=== PATIENT | female | born 1930 | race Caucasian/White ===

== ENCOUNTER → 2016-07-26 | Day surgery (SDC) | payer MEDICARE, OTHER ==
[~2016-07-26] MED LIST: Brimonidine 0.2% Ophth Soln 5 ML Bottle EYEBOTH SCH; Phenylephrine 2.5% Ophth Soln 2 ML Bot EYEBOTH SCH
[2016-07-26 12:53] VITALS: BP 145/67
== END ==
LOC: JD.SDS 11:36
PROVIDERS: ATTEND Ophthalmology
DX: H26.493 Other secondary cataract, bilateral (principal); H16.103 Unspecified superficial keratitis, bilateral; H16.223 Keratoconjunctivitis sicca, not specified as Sjogren's, bilateral; H40.003 Preglaucoma, unspecified, bilateral; E11.9 Type 2 diabetes mellitus without complications; E78.00 Pure hypercholesterolemia, unspecified; I10 Essential (primary) hypertension; Z90.49 Acquired absence of other specified parts of digestive tract; Z98.890 Other specified postprocedural states; Z90.710 Acquired absence of both cervix and uterus; Z98.41 Cataract extraction status, right eye; Z98.42 Cataract extraction status, left eye; Z96.1 Presence of intraocular lens; Z82.49 Family history of ischemic heart disease and other diseases of the circulatory system; Z83.518 Family history of other specified eye disorder; Z79.82 Long term (current) use of aspirin; Z79.899 Other long term (current) drug therapy; Z91.040 Latex allergy status; Z88.1 Allergy status to other antibiotic agents; Z88.8 Allergy status to other drugs, medicaments and biological substances
CPT/HCPCS: 66821; A9270

== ENCOUNTER 2016-08-06 14:20 | Emergency (ER) | payer MEDICARE, OTHER ==
[2016-08-06] MEDS ORDERED: Labetalol 100 MG/20 ML MDV IVPUSH ONE (15:19)
--- NOTE | 2016-08-06 15:21 | EDM.PDOC ---
ED HPI GENERAL MEDICAL PROBLEM - General Chief Complaint: Cardiovascular Problem Stated Complaint: ADELINA BLOOD PRESSURE Time Seen by Provider: 08/06/16 15:01 Source of Information: Reports: Patient History Limitations: Reports: No Limitations - History of Present Illness INITIAL COMMENTS - FREE TEXT/NARRATIVE: 86-year-old female presents for evaluation and treatment of hypertension and a headache. Patient reports that she took her blood pressure today and was found to have 186/105. She states that she was told by her doctor that she could take an extra lisinopril if her blood pressure is high. She took a 20 mg of lisinopril at 6 AM this morning, 9 AM this morning again at 1300 this afternoon. Reports her blood pressure remained high. Patient is denying any chest pain, shortness of breath, nausea, vomiting, vision changes or unintentional weight gain. She reports some swelling in her lower legs. She states she developes swelling when she indulges on sweets and She did indulg on sweets yesterday. Patient also reports a headache in the posterior aspect of her head. She does not frequently have headaches. Has not taken anything for the headache thus far. Posterior Headache Pain Score (Numeric/FACES): 8 - Related Data Allergies Allergy/AdvReac Type Severity Reaction Status Date / Time ciprofloxacin Allergy Rash Verified 05/15/15 17:33 clindamycin Allergy Rash Verified 05/15/15 17:33 Latex, Natural Rubber Allergy Rash Verified 05/15/15 17:33 nitrofurantoin Allergy Rash Verified 05/15/15 17:33 Sulfa (Sulfonamide Allergy Rash Verified 05/15/15 17:33 Antibiotics) Home Meds: Home Meds Aspirin [Mague Chewable Aspirin] 81 mg PO DAILY 08/21/13 [History] Cholecalciferol (Vitamin D3) [Vitamin D3] 1,000 units PO DAILY 08/21/13 [History ] Levothyroxine Sodium [Synthroid] 100 mcg PO DAILY 08/21/13 [History] Simvastatin [Zocor] 10 mg PO BEDTIME 08/21/13 [History] Ubidecarenone [Coq-10] 100 mg PO DAILY 08/21/13 [History] Antiox#10/Om3/DHA/EPA/Lut/Zeax [I-Caps with Lutein-[place] 3 SFG] 1 mg PO DAILY [History] Lisinopril 20 mg PO BID 04/13/14 [History] Hydrochlorothiazide 25 mg PO DAILY 03/09/15 [History] Metoprolol Tartrate 100 mg PO BID #60 tablet 05/04/15 [Rx] LORazepam [Ativan] 0.5 mg PO BEDTIME PRN #15 tablet 05/15/15 [Rx] cloNIDine [Catapres] 0.1 mg PO DAILY 05/15/15 [History] Metoprolol Tartrate 200 mg PO BID #90 tablet 08/07/16 [Rx] Past Medical History HEENT History: Reports: Cataract, Glaucoma, Impaired Vision Other HEENT History: wears eyeglasses Cardiovascular History: Reports: High Cholesterol, Hypertension 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: Reports: Renal Calculus 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 Oncologic (Cancer) History: Reports: Other (See Below) Other Oncologic History: unknown/ cant remember - Past Surgical History HEENT Surgical History: Reports: Cataract Surgery GI Surgical History: Reports: Appendectomy Neurological Surgical History: Reports: Discectomy Musculoskeletal Surgical History: Reports: Shoulder Surgery Social & Family History - Tobacco Use Smoking Status *Q: Former Smoker Years of Tobacco use: 25 Used Tobacco, but Quit: Yes Month Tobacco Last Used: 28 yrs Second Hand Smoke Exposure: No - Caffeine Use Caffeine Use: Reports: Coffee - Alcohol Use Days Per Week of Alcohol Use: 0 - Recreational Drug Use Recreational Drug Use: No - Living Situation & Occupation Living situation: Reports: Alone, Occupation: Retired ED ROS GENERAL - Review of Systems Review Of Systems: See Below Constitutional: Denies: Fever, Weight Gain HEENT: Denies: Vision Change Respiratory: Denies: Shortness of Breath Cardiovascular: Reports: Blood Pressure Problem, Edema. Denies: Chest Pain GI/Abdominal: Denies: Nausea, Vomiting Neurological: Reports: Headache. Denies: Dizziness ED EXAM, GENERAL - Physical Exam Exam: See Below Exam Limited By: No Limitations General Appearance: Alert, WD/WN, No Apparent Distress Eye Exam: Bilateral Eye: PERRL Ears: Normal External Exam Nose: Normal Inspection Throat/Mouth: Normal Inspection, Normal Voice, No Airway Compromise Head: Atraumatic, Normocephalic Neck: Normal Inspection, Full Range of Motion Respiratory/Chest: No Respiratory Distress, Lungs Clear, Normal Breath Sounds Cardiovascular: Normal Peripheral Pulses, Regular Rate, Rhythm, No Murmur Peripheral Pulses: 2+: Radial (L), Radial (R), Posterior Tibial (L), Posterior Tibial (R), Dorsalis Pedis (L), Dorsalis Pedis (R) Extremities: Normal Inspection, Other (2+ nonpitting edema) Neurological: Alert, Oriented, Normal Cognition, Normal Gait Psychiatric: Normal Affect, Normal Mood Skin Exam: Warm, Dry, Normal Color EKG INTERPRETATION EKG Date: 08/06/16 Time: 15:35 Rhythm: NSR Rate (beats/min): 86 [place]: normal P-wave: present QRS: normal ST-T: normal QT: normal Comparison: no change EKG Interpretation Comments: NSR at 86 bpm. Q waves in V1 and V2 -old anteroseptal UT. Reviewed by myself and Dr. Land. Course - Vital Signs Last Recorded V/S: Last Vital Signs Temp 36.6 C 08/06/16 14:52 Pulse 97 08/06/16 19:09 Resp 18 08/06/16 19:09 BP 153/73 H 08/06/16 19:09 Pulse Ox 96 08/06/16 19:09 - Orders/Labs/Meds Labs: Laboratory Tests 08/06/16 08/06/16 08/06/16 Range/Units 15:29 15:29 15:29 WBC 7.08 (3.98-10.04) K/mm3 RBC 4.30 (3.98-5.22) M/mm3 Hgb 13.7 (11.2-15.7) gm/L Hct 41.3 (34.1-44.9) % MCV 96.0 H (79.4-94.8) fl MCH 31.9 (25.6-32.2) pg MCHC 33.2 (32.2-35.5) g/dl RDW Std Deviation 46.9 H (36.4-46.3) fL Plt Count 185 (182-369) K/mm3 MPV 8.7 L (9.4-12.3) fl Neut % (Auto) 61.2 (34.0-71.1) % Lymph % (Auto) 21.9 (19.3-51.7) % [place] % (Auto) 11.3 (4.7-12.5) % Eos % (Auto) 4.4 (0.7-5.8) Baso % (Auto) 0.6 (0.1-1.2) % Neut # (Auto) 4.34 (1.56-6.13) K/mm3 Lymph # (Auto) 1.55 (1.18-3.74) K/mm3 [place] # (Auto) 0.80 H (0.24-0.36) K/mm3 Eos # (Auto) 0.31 (0.04-0.36) K/mm3 Baso # (Auto) 0.04 (0.01-0.08) K/mm3 Sodium 138 (136-145) mEq/L Potassium 4.2 (3.5-5.1) mEq/L Chloride 100 (98-107) mEq/L Carbon Dioxide 29 (21-32) mEq/L Anion Gap 13.2 (5-15) BUN 31 H (7-18) mg/dL Creatinine 1.2 H (0.55-1.02) mg/dL Est Cr Clr Drug Dosing 24.62 mL/min Estimated GFR (MDRD) 43 (>60) mL/min BUN/Creatinine Ratio 25.8 H (14-18) Glucose 93 (83-115) mg/dL Calcium 9.1 (8.5-10.1) mg/dL Total Bilirubin 0.3 (0.2-1.0) mg/dL AST 20 (15-37) U/L ALT 25 (14-59) U/L Alkaline Phosphatase 80 (46-116) U/L B-Natriuretic Peptide 252 H (0-100) pg/mL Total Protein 7.3 (6.4-8.2) g/dl Albumin 3.8 (3.4-5.0) g/dl Globulin 3.5 gm/dL Albumin/Globulin Ratio 1.1 (1-2) Meds: Medications Discontinued Medications Generic Name Dose Route Start Last Admin Trade Name Freq PRN Reason Stop Dose Admin Furosemide 40 mg 08/06/16 17:17 08/06/16 17:41 Lasix IVPUSH 08/06/16 17:18 40 mg NOW ONE Administration Ketorolac Tromethamine 15 mg 08/06/16 17:31 08/06/16 17:47 Toradol IVPUSH 08/06/16 17:32 15 mg ONETIME ONE Administration Labetalol HCl 20 mg 08/06/16 15:19 08/06/16 16:14 Normodyne IVPUSH 08/06/16 15:20 20 mg ONETIME ONE Administration Protocol - Radiology Interpretation Free Text/Narrative:: CT of the head without contrast impression per Dr. Angel 1.. Minimal air-fluid level seen within the sphenoid sinus possibly due to retained secretions as no other abnormalities are seen within the visualized paranasal sinuses. 2. Senescent change as described which is similar to prior head CT exam. 3. No acute intracranial abnormality is identified Chest xray shows no acute intrathoracic process. The flat plat of the abdomen was ordered in error; no concerns on xray - Re-Assessments/Exams Free Text/Narrative Re-Assessment/Exam: 08/06/16 15:17 b/p at this time 173/100 08/06/16 17:30 Labs have returned. white blood cell count is 7.3, hemoglobin 13.1 and platelets are 185. Sodium is 138, potassium is 4.2 chloride is 100. Anion gap is 13.2. Creatinine is 1.2. Glucose is 93. BNP is mildly elevated at 252. Discussed the case with Dr. Land. Recommended giving 10 mg amlodipine by mouth, 40 mg IV Lasix amd 20 mg IV labetalol. I decided to start with the IV labetalol which was ordered at 1519. And now ordered IV Lasix as her blood pressure continues to stay elevated in the 170s to 180s. I decided to hold off on the pew on the amlodipine and starting by mouth amlodipine as the patient reports her blood pressure is normally in the 120s to 110s systolic. Radha checks her blood pressure daily. 08/06/16 18:47 b/p at this time is 140/94. I reviewed the EKG, CT and lab results with the patient. headache has significantly improved. After IV toradol. Will discharge home. Departure - Departure Time of Disposition: 18:49 Disposition: Home, Self-Care 01 Condition: good Clinical Impression: HTN, Essential hypertension Instructions: Hypertension Referrals: Franchesca Greer VICE PRESIDENT OF HUMAN RESOURCES [Primary Care Provider] - Forms: ED Department Discharge Additional Instructions: Continue with current plan of care. Follow-up with PCP in 2 weeks for an ER follow-up of HTN and edema. Expect to have increased urination tonight. Please return to the ER should your symptoms change or worsen.
--- NOTE | 2016-08-06 16:14 | CT ---
Head CT Technique: Multiple axial sections through the brain were obtained. Intravenous contrast was not utilized. Comparison: Previous head CT exam of 05/04/15. Findings: Ventricles along with basal cisterns and sulci over the convexities appear within normal limits for the patient's age. Minimal diminished density is noted within portions of the periventricular and subcortical white matter which is compatible with small vessel ischemic demyelination change. No other areas of abnormal parenchymal density are seen. No evidence of intracranial hemorrhage is seen. No midline shift or mass effect is identified. Small air-fluid level seen within the both sphenoid sinuses possibly due to retained secretions. Paranasal sinuses otherwise are clear. Mastoid sinuses that are seen appear to be clear. No acute calvarial abnormality is seen. Mild atherosclerotic change noted within the carotid siphon. Impression: 1. Minimal air-fluid levels within the sphenoid sinus possibly due to retained secretions as no other abnormalities are seen within the visualized paranasal sinuses. 2. Senescent change as described above which is similar to prior head CT exam. 3. No acute intracranial abnormality is identified. Diagnostic code #2
[2016-08-06] MEDS ORDERED: Furosemide 40 MG/4 ML VIAL IVPUSH ONE (17:17)
[2016-08-06] MEDS ORDERED: Ketorolac 15 MG/ML SDV IVPUSH ONE (17:31)
[2016-08-06 19:11] VITALS: BP 153/73
--- NOTE | 2016-08-07 15:46 | CR ---
Chest: Frontal view of the chest is obtained. Comparison: Previous chest x-ray of 03/09/15. Moderately large hiatal hernia is seen. Heart size is normal. Mild tortuosity of the thoracic aorta is seen. Slight atelectasis is seen within the lateral left costophrenic angle and within the right mid to lower lung. Lungs otherwise are clear. Bony structures are grossly intact. Impression: 1. Findings felt to be incidental as described above. Nothing acute is appreciated. Diagnostic code #2
--- NOTE | 2016-08-07 15:46 | CR ---
Abdomen: Supine view of the abdomen was obtained. Comparison: No previous abdominal x-ray, previous CT abdomen and pelvis exam of 07/16/15 is available. Bowel gas pattern appears normal. Surgical clips are seen within the lower pelvis. Bony structures are within normal limits for the patient's age. Calcifications are noted within the pelvis believed to represent phleboliths. Impression: 1. Incidental findings. Diagnostic code #2
== END 2016-08-06 19:11 | disposition home or self-care (01) ==
LOC: JD.ED 14:20
DX: I10 Essential (primary) hypertension (principal); E78.00 Pure hypercholesterolemia, unspecified; R06.02 Shortness of breath; E03.9 Hypothyroidism, unspecified; E11.9 Type 2 diabetes mellitus without complications; Z88.1 Allergy status to other antibiotic agents; Z88.2 Allergy status to sulfonamides; Z79.82 Long term (current) use of aspirin; Z87.891 Personal history of nicotine dependence; Z90.49 Acquired absence of other specified parts of digestive tract; Z68.29 Body mass index [BMI] 29.0-29.9, adult; R51 Headache
CPT/HCPCS: 36415; 70450; 71010; 74000; 80053; 83880; 85025; 93005; 96374; 96375; 99284; J1885; J1940

== ENCOUNTER 2016-08-07 15:53 | Emergency (ER) | payer MEDICARE, OTHER ==
[2016-08-07] MEDS ORDERED: Sodium Chloride 0.9% 10 ML Syringe FLUSH PRN (16:26)
[2016-08-07] MEDS ORDERED: hydrALAZINE 20 MG/ML SDV IVPUSH ONE (16:27)
[2016-08-07] MEDS ORDERED: Metoprolol Tartrate 100 MG Tab PO ONE (17:36)
--- NOTE | 2016-08-07 18:08 | EDM.PDOC ---
ED HPI GENERAL MEDICAL PROBLEM - General Chief Complaint: Cardiovascular Problem Stated Complaint: HIGH BLOOD PRESSURE Time Seen by Provider: 08/07/16 16:04 Source of Information: Reports: Patient, Family History Limitations: Reports: No Limitations - History of Present Illness INITIAL COMMENTS - FREE TEXT/NARRATIVE: The patient presents with high blood pressure. She has a history of this and she is on 4 different medications. She was seen here yesterday and a full work up was done. They checked her heart, head and labs. She had a headache yesterday and today again. It was gone by the time she got here. She has no fever, chills, cough, chest pain or shortness of breath. She has no numbness or weakness. Onset: Gradual Duration: Day(s): Location: Reports: Head Quality: Reports: Ache Severity: Mild Improves with: Reports: None Worsens with: Reports: None Associated Symptoms: Reports: Headaches. Denies: Chest Pain, Nausea/Vomiting, Shortness of Breath, Weakness Headache Pain Score (Numeric/FACES): 4 - Related Data Allergies Allergy/AdvReac Type Severity Reaction Status Date / Time ciprofloxacin Allergy Rash Verified 05/15/15 17:33 clindamycin Allergy Rash Verified 05/15/15 17:33 Latex, Natural Rubber Allergy Rash Verified 05/15/15 17:33 nitrofurantoin Allergy Rash Verified 05/15/15 17:33 Sulfa (Sulfonamide Allergy Rash Verified 05/15/15 17:33 Antibiotics) Home Meds: Home Meds Aspirin [Mague Chewable Aspirin] 81 mg PO DAILY 08/21/13 [History] Cholecalciferol (Vitamin D3) [Vitamin D3] 1,000 units PO DAILY 08/21/13 [History ] Levothyroxine Sodium [Synthroid] 100 mcg PO DAILY 08/21/13 [History] Simvastatin [Zocor] 10 mg PO BEDTIME 08/21/13 [History] Ubidecarenone [Coq-10] 100 mg PO DAILY 08/21/13 [History] Antiox#10/Om3/DHA/EPA/Lut/Zeax [I-Caps with Lutein-[place] 3 SFG] 1 mg PO DAILY [History] Lisinopril 20 mg PO BID 04/13/14 [History] Hydrochlorothiazide 25 mg PO DAILY 03/09/15 [History] Metoprolol Tartrate 100 mg PO BID #60 tablet 05/04/15 [Rx] LORazepam [Ativan] 0.5 mg PO BEDTIME PRN #15 tablet 05/15/15 [Rx] cloNIDine [Catapres] 0.1 mg PO DAILY 05/15/15 [History] Metoprolol Tartrate 200 mg PO BID #90 tablet 08/07/16 [Rx] Past Medical History HEENT History: Reports: Cataract, Glaucoma, Impaired Vision Other HEENT History: wears eyeglasses Cardiovascular History: Reports: High Cholesterol, Hypertension 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: Reports: Renal Calculus 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 Oncologic (Cancer) History: Reports: Other (See Below) Other Oncologic History: unknown/ cant remember - Past Surgical History HEENT Surgical History: Reports: Cataract Surgery GI Surgical History: Reports: Appendectomy Neurological Surgical History: Reports: Discectomy Musculoskeletal Surgical History: Reports: Shoulder Surgery Social & Family History - Tobacco Use Smoking Status *Q: Never Smoker Years of Tobacco use: 25 Used Tobacco, but Quit: Yes Month Tobacco Last Used: 28 yrs Second Hand Smoke Exposure: No - Caffeine Use Caffeine Use: Reports: Coffee - Alcohol Use Days Per Week of Alcohol Use: 0 - Recreational Drug Use Recreational Drug Use: No - Living Situation & Occupation Living situation: Reports: Alone, Occupation: Retired ED ROS GENERAL - Review of Systems Review Of Systems: See Below Constitutional: Reports: No Symptoms HEENT: Reports: No Symptoms Respiratory: Reports: No Symptoms Cardiovascular: Reports: No Symptoms Endocrine: Reports: No Symptoms GI/Abdominal: Reports: No Symptoms : Reports: No Symptoms Musculoskeletal: Reports: No Symptoms Skin: Reports: No Symptoms Neurological: Reports: Headache ED EXAM, GENERAL - Physical Exam Exam: See Below Exam Limited By: No Limitations General Appearance: Alert, No Apparent Distress Ears: Normal External Exam Nose: Normal Inspection Head: Atraumatic, Normocephalic Neck: Normal Inspection Respiratory/Chest: No Respiratory Distress, Lungs Clear, Normal Breath Sounds Cardiovascular: Regular Rate, Rhythm, No Edema, No Murmur GI/Abdominal: Soft, Non-Tender, No Organomegaly, No Mass Back Exam: Normal Inspection Extremities: Normal Inspection Course - Vital Signs Last Recorded V/S: Last Vital Signs Temp 96.9 F 08/07/16 16:05 Pulse 88 08/07/16 17:48 Resp 20 08/07/16 16:05 BP 168/81 H 08/07/16 17:48 Pulse Ox 96 08/07/16 16:05 - Orders/Labs/Meds Orders: Active Orders 24 hr Category Date Time Status Peripheral IV Care [RC] . DIRECTED Care 08/07/16 16:27 Active Sodium Chloride 0.9% [Saline Flush] Med 08/07/16 16:26 Active 10 ml FLUSH ASDIRECTED PRN Peripheral IV Insertion Adult [OM.PC] Routine Oth 08/07/16 16:26 Ordered Medication Orders Sodium Chloride (Saline Flush) 10 ml FLUSH ASDIRECTED PRN PRN Reason: Keep Vein Open Last Admin: 08/07/16 16:36 Dose: 10 ml Meds: Medications Generic Name Dose Route Start Last Admin Trade Name Freq PRN Reason Stop Dose Admin Sodium Chloride 10 ml 08/07/16 16:26 08/07/16 16:36 Saline Flush FLUSH 10 ml ASDIRECTED PRN Administration Keep Vein Open Discontinued Medications Generic Name Dose Route Start Last Admin Trade Name Freq PRN Reason Stop Dose Admin Hydralazine HCl 10 mg 08/07/16 16:27 08/07/16 16:36 Apresoline IVPUSH 08/07/16 16:28 10 mg ONETIME ONE Administration Metoprolol Tartrate 200 mg 08/07/16 17:36 08/07/16 17:48 Lopressor PO 08/07/16 17:37 200 mg ONETIME ONE Administration - Re-Assessments/Exams Free Text/Narrative Re-Assessment/Exam: 08/07/16 18:11 I ordered an IV saline lock and hydralazine. Her BP came down nice to 138 systolic. She got up to use the restroom and it went up to 191 systolic. I gave her metroprolol 200mg and it is down to 164 systolic. Departure - Departure Time of Disposition: 18:15 Disposition: Home, Self-Care 01 Condition: good Clinical Impression: HTN, Essential hypertension Prescriptions: Metoprolol Tartrate 200 mg PO BID #90 tablet Referrals: Franchesca Greer MACHINE STOPPAGE FREQUENCY CHECKER [Primary Care Provider] - 1 Week Forms: ED Department Discharge Additional Instructions: Take 200mg or 2 pills of the metoprolol 2 times per day. Take the rest of your medications as prescribed. Follow up with Franchesca this next week. Please return if you are worse. - My Orders Last 24 Hours: My Active Orders 08/07/16 16:26 Sodium Chloride 0.9% [Saline Flush] 10 ml FLUSH ASDIRECTED PRN Peripheral IV Insertion Adult [OM.PC] Routine 08/07/16 16:27 Peripheral IV Care [RC] . DIRECTED - Assessment/Plan Last 24 Hours: My Active Orders 08/07/16 16:26 Sodium Chloride 0.9% [Saline Flush] 10 ml FLUSH ASDIRECTED PRN Peripheral IV Insertion Adult [OM.PC] Routine 08/07/16 16:27 Peripheral IV Care [RC] . DIRECTED
[2016-08-07] MEDS ORDERED: Ondansetron 4 MG/2 ML SDV IVPUSH ONE (18:13)
[2016-08-07 18:25] VITALS: BP 157/76
== END 2016-08-07 18:30 | disposition home or self-care (01) ==
LOC: JD.ED 15:53
DX: I10 Essential (primary) hypertension (principal); E78.00 Pure hypercholesterolemia, unspecified; E03.9 Hypothyroidism, unspecified; E11.9 Type 2 diabetes mellitus without complications; Z98.49 Cataract extraction status, unspecified eye; Z90.49 Acquired absence of other specified parts of digestive tract; Z98.890 Other specified postprocedural states; Z79.82 Long term (current) use of aspirin; Z79.899 Other long term (current) drug therapy; Z88.1 Allergy status to other antibiotic agents; Z88.2 Allergy status to sulfonamides; Z88.8 Allergy status to other drugs, medicaments and biological substances; Z91.040 Latex allergy status
CPT/HCPCS: 96374; 96375; 99283; A9270; J0360; J2405; J7050; 99284

== ENCOUNTER 2016-11-06 13:36 | Emergency (ER) | payer MEDICARE, OTHER ==
[2016-11-06 14:45] VITALS: BP 175/60
[2016-11-06] MEDS ORDERED: diphenhydrAMINE 50 MG Cap PO ONE (15:18)
[2016-11-06] MEDS ORDERED: predniSONE 20 MG Tab PO ONE (15:19)
[2016-11-06] MEDS ORDERED: Famotidine 20 MG Tab PO ONE (15:19)
--- NOTE | 2016-11-06 15:25 | EDM.PDOC ---
ED HPI GENERAL MEDICAL PROBLEM - General Chief Complaint: Allergic Reaction Stated Complaint: ALLERGIC RX Time Seen by Provider: 11/06/16 15:11 Source of Information: Reports: Patient History Limitations: Reports: No Limitations - History of Present Illness INITIAL COMMENTS - FREE TEXT/NARRATIVE: Patient is a 86-year-old female who presents to the ED complaining of a rash involving her chest, face, neck, arms, abdomen, and back. Patient states she was recently diagnosed with a UTI approximately one week ago. She was started on Bactrim DS. This was started on the by a provider at [facility]. Patient developed this rash as described above last night. She stopped taking the Bactrim. She has a documented history of allergies to sulfa. Patient states urine culture was obtained with results indicating not enough bacteria present. Unknown if patient has a UTI. Patient states she has a history kidney stones. Onset of pain was quite severe similar to previous episodes of passing 5 years ago. There was copious amounts of blood within her urine with onset that decreased with the evaluation the following day. She had no pain with urination at that time. Patient denies any shortness of breath, difficulty swallowing, sensation her throat is closing off, pain, lightheadedness, chest pain,nausea/vomiting, fever/ chills, or any additional complaints. - Related Data Allergies Allergy/AdvReac Type Severity Reaction Status Date / Time ciprofloxacin Allergy Rash Verified 11/06/16 14:41 clindamycin Allergy Rash Verified 11/06/16 14:41 Latex, Natural Rubber Allergy Rash Verified 11/06/16 14:41 nitrofurantoin Allergy Rash Verified 11/06/16 14:41 Sulfa (Sulfonamide Allergy Rash Verified 11/06/16 14:41 Antibiotics) Home Meds: Home Meds Aspirin [Mague Chewable Aspirin] 81 mg PO DAILY 08/21/13 [History] Cholecalciferol (Vitamin D3) [Vitamin D3] 1,000 units PO DAILY 08/21/13 [History ] Levothyroxine Sodium [Synthroid] 100 mcg PO DAILY 08/21/13 [History] Simvastatin [Zocor] 10 mg PO BEDTIME 08/21/13 [History] Ubidecarenone [Coq-10] 100 mg PO DAILY 08/21/13 [History] Antiox#10/Om3/DHA/EPA/Lut/Zeax [I-Caps with Lutein-Hasty 3 SFG] 1 mg PO DAILY [History] Lisinopril 20 mg PO BID 04/13/14 [History] Hydrochlorothiazide 25 mg PO DAILY 03/09/15 [History] Metoprolol Tartrate 100 mg PO BID #60 tablet 05/04/15 [Rx] LORazepam [Ativan] 0.5 mg PO BEDTIME PRN #15 tablet 05/15/15 [Rx] cloNIDine [Catapres] 0.1 mg PO DAILY 05/15/15 [History] Metoprolol Tartrate 200 mg PO BID #90 tablet 08/07/16 [Rx] Prednisone [IMW: predniSONE] 20 mg PO WITHBREAKFAST #5 tab 11/06/16 [Rx] Past Medical History HEENT History: Reports: Cataract, Glaucoma, Impaired Vision Other HEENT History: wears eyeglasses Cardiovascular History: Reports: High Cholesterol, Hypertension 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: Reports: Renal 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 Oncologic (Cancer) History: Reports: Other (See Below) Other Oncologic History: unknown/ cant remember - Past Surgical History HEENT Surgical History: Reports: Cataract Surgery GI Surgical History: Reports: Appendectomy Neurological Surgical History: Reports: Discectomy Musculoskeletal Surgical History: Reports: Shoulder Surgery Social & Family History - Tobacco Use Smoking Status *Q: Never Smoker Years of Tobacco use: 25 Used Tobacco, but Quit: Yes Month Tobacco Last Used: 28 yrs Second Hand Smoke Exposure: No - Caffeine Use Caffeine Use: Reports: Coffee - Alcohol Use Days Per Week of Alcohol Use: 0 - Recreational Drug Use Recreational Drug Use: No - Living Situation & Occupation Living situation: Reports: Alone, Occupation: Retired ED ROS ALLERGIC REACTION - Review of Systems Review Of Systems: ROS reveals no pertinent complaints other than HPI. ED EXAM GENERAL NO PERIP PULSE - Physical Exam Exam: See Below Exam Limited By: No Limitations General Appearance: Alert, WD/WN, No Apparent Distress Ears: Hearing Grossly Normal Nose: Normal Inspection Throat/Mouth: Normal Inspection, Normal Oropharynx, Normal Voice, No Airway Compromise Neck: Supple, Non-Tender, Full Range of Motion Respiratory/Chest: No Respiratory Distress, Lungs Clear, Normal Breath Sounds, No Accessory Muscle Use, Chest Non-Tender Cardiovascular: Normal Peripheral Pulses, Regular Rate, Rhythm, No Murmur GI/Abdominal: Normal Bowel Sounds, Soft, Non-Tender, No Organomegaly, No Distention Back Exam: No: CVA Tenderness (L), CVA Tenderness (R) Neurological: Alert, Oriented, CN II-XII Intact, Normal Cognition, No Motor/ Sensory Deficits Psychiatric: Normal Affect, Normal Mood Skin Exam: Warm, Dry, Other (morbilliform rash to face, chest, neck, arms, and back. ) Course - Vital Signs Last Recorded V/S: Last Vital Signs Temp 98.2 F 11/06/16 14:42 Pulse 64 11/06/16 14:42 Resp BP 175/60 H 11/06/16 14:42 Pulse Ox 99 11/06/16 14:42 - Orders/Labs/Meds Labs: Laboratory Tests 11/06/16 Range/Units 15:20 Urine Color Yellow (Yellow) Urine Appearance Clear (Clear) Urine pH 6.5 (5.0-8.0) Ur Specific Hunter 1.020 (1.005-1.030) Urine Protein Negative (Negative) Urine Glucose (UA) Negative (Negative) Urine Ketones Negative (Negative) Urine Occult Blood Negative (Negative) Urine Nitrite Negative (Negative) Urine Bilirubin Negative (Negative) Urine Urobilinogen 0.2 (0.2-1.0) Ur Leukocyte Esterase Trace H (Negative) Urine RBC 0-5 (0-5) /hpf Urine WBC 0-5 (0-5) /hpf Ur Epithelial Cells 0-5 (0-5) /hpf Urine Bacteria Rare (FEW) /hpf Urine Mucus Not seen (FEW) /hpf Meds: Medications Discontinued Medications Generic Name Dose Route Start Last Admin Trade Name Freq PRN Reason Stop Dose Admin Diphenhydramine HCl 50 mg 11/06/16 15:18 Benadryl PO 11/06/16 15:19 ONETIME ONE Diphenhydramine HCl 25 mg 11/06/16 15:30 11/06/16 15:36 Benadryl PO 11/06/16 15:31 25 mg ONETIME ONE Administration Famotidine 20 mg 11/06/16 15:19 11/06/16 15:36 Pepcid PO 11/06/16 15:20 20 mg ONETIME ONE Administration Prednisone 20 mg 11/06/16 15:19 11/06/16 15:36 Prednisone PO 11/06/16 15:20 20 mg ONETIME ONE Administration - Re-Assessments/Exams Free Text/Narrative Re-Assessment/Exam: Ordered 25 mg Benadryl by mouth, Pepcid 20 mg by mouth, prednisone 20 mg by mouth, and UA. Patient's rash has dissipated with the above therapies. Vital signs are stable. Patient's ready be discharged home. Departure - Departure Time of Disposition: 17:00 Disposition: Home, Self-Care 01 Condition: Good Clinical Impression: Allergic drug rash due to sulfonamide Allergic reaction caused by a drug Qualifiers: Encounter type: initial encounter Qualified Code(s): T78.40XA - Allergy, unspecified, initial encounter - Discharge Information Prescriptions: Prednisone [IMW: predniSONE] 20 mg PO WITHBREAKFAST #5 tab Instructions: Drug Allergy, [id number], Anaphylactic Reaction, [id number] Referrals: Franchesca Greer CAR BODY INSPECTOR [Primary Care Provider] - Forms: ED Department Discharge Additional Instructions: You experienced a allergic rash to sulfa drug called Bactrim DS. You should not take this medication again. Antibodies buildup within her body with repeated exposure which may precipitate a anaphylatic reaction. Will have you take Benadryl 25 mg every 6 hours as long as itching is present. This medication may increase her blood pressure but due to the short-term use of this medication I am not too concerned at this point. Take Pepcid 20 mg every day for the next 5 days. Will have you take prednisone 20 mg every a.m. for the next 5 days as well. Blood sugars may increase will taking the prednisone. Follow-up with your PCP this coming week for reevaluation. Return to ED for any new or worsening symptoms.
[2016-11-06] MEDS ORDERED: diphenhydrAMINE 25 MG Cap PO ONE (15:30)
== END 2016-11-06 17:20 | disposition home or self-care (01) ==
LOC: JD.ED 13:36
DX: L27.0 Generalized skin eruption due to drugs and medicaments taken internally (principal); T37.0X5A Adverse effect of sulfonamides, initial encounter; E78.00 Pure hypercholesterolemia, unspecified; I10 Essential (primary) hypertension; E03.9 Hypothyroidism, unspecified; Z87.442 Personal history of urinary calculi; Z88.1 Allergy status to other antibiotic agents; Z91.040 Latex allergy status; Z79.82 Long term (current) use of aspirin; Z79.899 Other long term (current) drug therapy; Z98.49 Cataract extraction status, unspecified eye; Z90.49 Acquired absence of other specified parts of digestive tract; Z88.2 Allergy status to sulfonamides
CPT/HCPCS: 81001; 99283; A9270

== ENCOUNTER 2017-10-01 21:00 | Emergency (ER) | payer MEDICARE, OTHER ==
[2017-10-01 21:14] VITALS: BP 212/88
--- NOTE | 2017-10-01 22:09 | EDM.PDOC ---
ED HPI GENERAL MEDICAL PROBLEM - General Chief Complaint: Cardiovascular Problem Stated Complaint: HIGH BLOOD PRESSURE Time Seen by Provider: 10/01/17 21:10 Source of Information: Reports: Patient History Limitations: Reports: No Limitations - History of Present Illness INITIAL COMMENTS - FREE TEXT/NARRATIVE: The patient states that she has had a headache for the past few days. She checked her blood pressure today and found it to be elevated at 170/100. She ordinarily takes metoprolol 150 mg twice a day; she took 100 mg early, at 16:00 this afternoon. Here in the ED, her initial BP is 212/88, HR 63. The patient's PCP is Franchesca Greer. - Related Data Allergies Allergy/AdvReac Type Severity Reaction Status Date / Time ciprofloxacin Allergy Rash Verified 10/01/17 21:13 clindamycin Allergy Rash Verified 10/01/17 21:13 Latex, Natural Rubber Allergy Rash Verified 10/01/17 21:13 nitrofurantoin Allergy Rash Verified 10/01/17 21:13 Sulfa (Sulfonamide Allergy Rash Verified 10/01/17 21:13 Antibiotics) Home Meds: Home Meds Aspirin [Mague Chewable Aspirin] 81 mg PO DAILY 08/21/13 [History] Levothyroxine Sodium [Synthroid] 112 mcg PO DAILY 08/21/13 [History] Simvastatin [Zocor] 20 mg PO BEDTIME 08/21/13 [History] Lisinopril 20 mg PO BID 04/13/14 [History] cloNIDine [Catapres] 2 tab PO BID 05/15/15 [History] Chlorthalidone 25 mg PO DAILY 10/01/17 [History] Metoprolol Tartrate 150 mg PO BID 10/01/17 [History] Primidone [Mysoline] 1.5 tab PO DAILY 10/01/17 [History] Past Medical History HEENT History: Reports: Glaucoma Other HEENT History: wears eyeglasses Cardiovascular History: Reports: High Cholesterol, Hypertension 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: 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: Reports: 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 Endocrine/Metabolic History: Reports: Hypothyroidism, Other (See Below) ( Prediabetes) - Past Surgical History HEENT Surgical History: Reports: Cataract Surgery GI Surgical History: Reports: Appendectomy Female Surgical History: Reports: Hysterectomy, Salpingo-Oophorectomy Neurological Surgical History: Reports: Discectomy (lumbar) Musculoskeletal Surgical History: Reports: Shoulder Surgery (left, open, x 3) Social & Family History - Family History Family Medical History: Noncontributory - Tobacco Use Smoking Status *Q: Former Smoker Packs/Tins Daily: 1 Month/Year Tobacco Last Used: Quit 1989 - Caffeine Use Caffeine Use: Reports: Coffee - Alcohol Use Alcohol Use History: No - Recreational Drug Use Recreational Drug Use: No - Living Situation & Occupation Living situation: Reports: Alone, Occupation: Retired ED ROS GENERAL - Review of Systems Review Of Systems: ROS reveals no pertinent complaints other than HPI. ED EXAM, GENERAL - Physical Exam Exam: See Below Exam Limited By: No Limitations General Appearance: Alert, WD/WN, No Apparent Distress Eye Exam: Bilateral Eye: EOMI, Normal Inspection, PERRL Ears: Normal External Exam, Hearing Grossly Normal Nose: Normal Inspection, No Blood Throat/Mouth: Normal Inspection, Normal Lips, Normal Voice, No Airway Compromise Head: Atraumatic, Normocephalic Neck: Normal Inspection, Full Range of Motion Respiratory/Chest: No Respiratory Distress, Lungs Clear, Normal Breath Sounds, No Accessory Muscle Use Cardiovascular: Normal Peripheral Pulses, Regular Rate, Rhythm, No Gallop, No JVD, No Murmur, No Rub Peripheral Pulses: 4+: Radial (L), Radial (R) GI/Abdominal: Normal Bowel Sounds, Soft, Non-Tender, No Organomegaly, No Distention, No Abnormal Bruit, No Mass (Female) Exam: Deferred Rectal (Female) Exam: Deferred Back Exam: Normal Inspection, Full Range of Motion, NT Extremities: Normal Inspection, Normal Range of Motion, No Pedal Edema, Normal Capillary Refill Neurological: Alert, Oriented, CN II-XII Intact, Normal Cognition, No Motor/ Sensory Deficits Psychiatric: Normal Affect Skin Exam: Warm, Dry, Intact, Normal Color, No Rash Course - Vital Signs Last Recorded V/S: Last Vital Signs Temp 36.6 C 10/01/17 21:10 Pulse 63 10/01/17 21:10 Resp 16 10/01/17 21:10 BP 212/88 H 10/01/17 21:10 Pulse Ox 94 L 10/01/17 21:10 - Re-Assessments/Exams Free Text/Narrative Re-Assessment/Exam: 10/01/17 22:04 Upon presentation to the ED, the patient's initial blood pressure was 212/88, HR 63, however, without any treatment, 20 minutes later her BP will was 155/62, HR 56. Even with her initial blood pressure, the patient did not meet diagnostic criteria for a hypertensive urgency or emergency, as her diastolic blood pressure was under 120. No treatment was indicated. Because the patient's blood pressure dropped significantly without any treatment , it is likely that her initial elevated blood pressure was due to anxiety. The patient's neurologic exam tonight is completely normal, therefore her headache does not appear to be due to an intracranial bleed, and a CT scan of her head is not indicated. I'm recommending that she take [id number] Tylenol or ibuprofen. The definition, diagnosis, and treatment of hypertension was discussed at length with the patient. Departure - Departure Time of Disposition: 22:05 Disposition: Home, Self-Care 01 Condition: Good Clinical Impression: Elevated blood pressure reading with diagnosis of hypertension Referrals: Franchesca Greer ART THERAPY SPECIALIST [Primary Care Provider] - Forms: ED Department Discharge Additional Instructions: You were seen in the emergency room for elevated blood pressure tonight, and 3 days of a headache. Without treatment, your blood pressure fell to 155/62 in the ER. As discussed, no medical treatment was indicated, even with your initially high blood pressure. In order to determine if your current blood pressure medications are adequate, current guidelines recommend that you check your blood pressure 2-3 times a week , preferably at different times of the day, for 2-3 weeks. It is very important that you check your blood pressure only under restful conditions, meeting, that you're sitting quietly for at least 5, and preferably 15 minutes, that you are not sick, you are not in pain, and you are not anxious. Write the numbers down, and present them to your PCP, Ismael Greer, when you next see her. She will then determine if modification of your blood pressure medicine is needed. For your headache, we recommend that you take [id number] Tylenol or ibuprofen. If any other problems, please do not hesitate to return to the ER.
== END 2017-10-01 22:21 | disposition home or self-care (01) ==
LOC: JD.ED 21:00
DX: I10 Essential (primary) hypertension (principal); E78.00 Pure hypercholesterolemia, unspecified; Z88.1 Allergy status to other antibiotic agents; Z88.2 Allergy status to sulfonamides; Z91.040 Latex allergy status; Z79.899 Other long term (current) drug therapy; Z87.442 Personal history of urinary calculi; Z87.891 Personal history of nicotine dependence
CPT/HCPCS: 99283

== ENCOUNTER 2017-12-09 08:19 | Emergency (ER) | payer MEDICARE, OTHER ==
[2017-12-09 08:37] VITALS: BP 162/69
[2017-12-09] MEDS ORDERED: Acetaminophen 325 MG Tab PO ONE (09:02)
[2017-12-09] MEDS ORDERED: Acetaminophen/Codeine 300-30 MG Tab PO ONE (09:12)
--- NOTE | 2017-12-09 09:28 | EDM.PDOC ---
<Arelis Nails - Last Filed: 12/09/17 09:35> ED HPI GENERAL MEDICAL PROBLEM - General Chief Complaint: Upper Extremity Injury/Pain Stated Complaint: R SHOULDER PAIN Time Seen by Provider: 12/09/17 08:29 Source of Information: Reports: Patient History Limitations: Reports: No Limitations - History of Present Illness INITIAL COMMENTS - FREE TEXT/NARRATIVE: Yumiko is a pleasant 87-year-old woman with a medical history of CAD, DM2, HTN, HLD, and hypothyroidism who reports pain in her right shoulder with onset 4 days ago. She presents to the ED today because her pain has increased since initial onset. She denies any injury or fall. Pain is constant, worse with movement, and better with immobilization. She characterizes the pain as sharp, throbbing, with occasional pressure and radiation to the elbow. She has not experienced any numbness, tingling, or alterations in sensation. She is able to move and use her arm, but movement is limited by pain. She denies fever, chills , malaise, chest pain, palpitations, shortness of breath. Yumiko denies any known history of arthritis, to include RA and osteoarthritis. She has had 3x rotator cuff surgeries on her left shoulder, but denies any previous surgeries or problems with her right shoulder. She has been using a heating pad for the pain, and accidentally burned the skin on the anterior and posterior shoulder. Onset: Gradual Right Shoulder Pain Score (Numeric/FACES): 6 - Related Data Allergies Allergy/AdvReac Type Severity Reaction Status Date / Time ciprofloxacin Allergy Rash Verified 12/09/17 08:31 clindamycin Allergy Rash Verified 12/09/17 08:31 Latex, Natural Rubber Allergy Rash Verified 12/09/17 08:31 nitrofurantoin Allergy Rash Verified 12/09/17 08:31 Sulfa (Sulfonamide Allergy Rash Verified 12/09/17 08:31 Antibiotics) Home Meds: Home Meds Aspirin [Mague Chewable Aspirin] 81 mg PO DAILY 08/21/13 [History] Levothyroxine Sodium [Synthroid] 112 mcg PO DAILY 08/21/13 [History] Simvastatin [Zocor] 20 mg PO BEDTIME 08/21/13 [History] Lisinopril 20 mg PO BID 04/13/14 [History] cloNIDine [Catapres] 2 tab PO BID 05/15/15 [History] Chlorthalidone 50 mg PO DAILY 10/01/17 [History] Metoprolol Tartrate 150 mg PO BID 10/01/17 [History] Primidone [Mysoline] 100 mg PO DAILY 10/01/17 [History] Acetaminophen/Codeine [Tylenol with Codeine No.3 300MG/30MG] 1 tab PO Q4H PRN # 15 tab 12/09/17 [Rx] B2/Vit A,C & E/Lut/Zeaxanth/Mn [Icaps] 1 tab PO DAILY 12/09/17 [History] amLODIPine Besylate [Amlodipine Besylate] 5 mg PO DAILY 12/09/17 [History] Past Medical History HEENT History: Reports: Glaucoma Other HEENT History: wears eyeglasses Cardiovascular History: Reports: High Cholesterol, Hypertension 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 Oncologic (Cancer) History: Reports: Other (See Below) Other Oncologic History: unknown/ cant remember - Past Surgical History HEENT Surgical History: Reports: Cataract Surgery GI Surgical History: Reports: Appendectomy Female Surgical History: Reports: Hysterectomy, Salpingo-Oophorectomy Neurological Surgical History: Reports: Discectomy Musculoskeletal Surgical History: Reports: Shoulder Surgery Social & Family History - Family History Family Medical History: Noncontributory - Tobacco Use Smoking Status *Q: Former Smoker Used Tobacco, but Quit: Yes Month/Year Tobacco Last Used: 50 years ago - Caffeine Use Caffeine Use: Reports: None - Recreational Drug Use Recreational Drug Use: No - Living Situation & Occupation Living situation: Reports: Alone, Occupation: Retired Review of Systems - Review of Systems Review Of Systems: ROS reveals no pertinent complaints other than HPI. Constitutional: Denies: Chills, Fever ED EXAM, GENERAL - Physical Exam Exam Limited By: No Limitations General Appearance: Alert, Mild Distress Head: Atraumatic Neck: Normal Inspection, Non-Tender, Full Range of Motion Respiratory/Chest: Lungs Clear, Normal Breath Sounds Cardiovascular: Normal Peripheral Pulses, No Murmur, Extra Beats. No: Bradycardia, Tachycardia GI/Abdominal: Soft, Non-Tender Back Exam: Normal Inspection, Full Range of Motion Extremities: Normal Inspection, Normal Range of Motion (pain with ROM of right shoulder, but full stength and ROM), Normal Capillary Refill, Joint Swelling ( swelling of right shoulder; tenderness to soft tissue at anterior shoulder. No dislocation.) Neurological: Alert, Oriented, Normal Cognition Psychiatric: Normal Affect, Anxious Skin Exam: Wound/Incision (burn wound, 1cm x 1 cm at posterior right shoulder. Healing well with mild erythema, scab, no exudate.) Course - Vital Signs Last Recorded V/S: Last Vital Signs Temp 36.3 C 12/09/17 08:31 Pulse 78 12/09/17 08:31 Resp 16 12/09/17 08:31 BP 162/69 H 12/09/17 08:31 Pulse Ox 98 12/09/17 08:31 - Orders/Labs/Meds Orders: Active Orders 24 hr Category Date Time Status Shoulder Comp Rt [CR] Stat Exams 12/09/17 08:59 Taken Meds: Medications Discontinued Medications Generic Name Dose Route Start Last Admin Trade Name Raúlq PRN Reason Stop Dose Admin Acetaminophen 650 mg 12/09/17 09:02 12/09/17 09:28 Tylenol PO 12/09/17 09:03 650 mg NOW ONE Administration Acetaminophen/Codeine Phosphate 1 tab 12/09/17 09:12 12/09/17 09:28 Tylenol With Codeine No.3 300mg/30mg PO 12/09/17 09:13 1 tab ONETIME ONE Administration Departure - Departure Time of Disposition: 09:23 Disposition: Home, Self-Care 01 Clinical Impression: Shoulder pain, right Qualifiers: Chronicity: acute Qualified Code(s): M25.511 - Pain in right shoulder - Discharge Information *PRESCRIPTION DRUG MONITORING PROGRAM REVIEWED*: Not Applicable *COPY OF PRESCRIPTION DRUG MONITORING REPORT IN PATIENT TEDDY: Not Applicable Prescriptions: Acetaminophen/Codeine [Tylenol with Codeine No.3 300MG/30MG] 1 tab PO Q4H PRN # 15 tab PRN Reason: Pain Instructions: Shoulder Pain, Shoulder Range of Motion Exercises, Heat Therapy Referrals: Franchesca Greer NP [Primary Care Provider] - Forms: ED Department Discharge Additional Instructions: 1. Take Tylenol or Tylenol with codeine as needed for pain. Continue heat therapy, taking caution not to burn the skin. Continue to use your arm and shoulder to prevent shoulder stiffness, but prevent over-use of the shoulder. 2. Continue your current medications, with the addition of Tylenol or Tylenol w/ codeine as needed. 3. Follow up with your primary care provider at your earliest convenience. Your PCP may consider ordering outpatient MRI and physical therapy. 4. Return to the ED if you have increasing and intolerable pain, alterations in sensation or bloowflow to your right arm/hand, fever/chills, malaise, or any other concerning symptoms. - My Orders Last 24 Hours: My Active Orders 12/09/17 08:59 Shoulder Comp Rt [CR] Stat - Assessment/Plan Last 24 Hours: My Active Orders 12/09/17 08:59 Shoulder Comp Rt [CR] Stat <Declan Carney - Last Filed: 12/09/17 13:40> Review of Systems - Review of Systems Review Of Systems: See Below Respiratory: Reports: No Symptoms Cardiovascular: Reports: No Symptoms GI/Abdominal: Reports: No Symptoms Musculoskeletal: Reports: Shoulder Pain Neurological: Denies: Tingling, Weakness ED EXAM, GENERAL - Physical Exam Exam: See Below General Appearance: WD/WN Eye Exam: Bilateral Eye: Normal Inspection Ears: Normal External Exam Nose: Normal Inspection Throat/Mouth: Normal Inspection, Normal Oropharynx, Normal Voice, No Airway Compromise Head: Normocephalic Neck: Supple Respiratory/Chest: No Respiratory Distress GI/Abdominal: No Distention Extremities: Joint Swelling (tenderness to soft tissue at anterior shoulder. No dislocation, full ROM. Skin normal throughout. No redness/warmth. Distal motor/ sensation/perfusion intact. ) Course - Re-Assessments/Exams Free Text/Narrative Re-Assessment/Exam: 12/09/17 13:38 XR R shoulder shows normal bony alignment, mild arthritis of the shoulder, no effusion, no acute abnormality. No definite explanation for her symptoms. May be due to arthritis. She states that APAP with codeine has been very helpful for her pain previously but doesn't make her confused, requests this for pain as she's been told not to take NSAID's and "tylenol doesn't work." Advised PCP f /u this week for further care, discussed return precautions.
--- NOTE | 2017-12-10 17:03 | CR ---
Right shoulder: Three views of the right shoulder were obtained. Comparison: No prior shoulder study. Acromioclavicular joint shows minimal inferior spurring. Glenohumeral joint appears within normal limits. No fracture or other bony abnormality is seen. No abnormal soft tissue calcifications are seen. Impression: 1. Minimal inferior spurring within the acromioclavicular joint. 2. Right shoulder study is otherwise unremarkable. Diagnostic code #2
== END 2017-12-09 09:42 | disposition home or self-care (01) ==
LOC: JD.ED 08:19
DX: M25.511 Pain in right shoulder (principal); I10 Essential (primary) hypertension; E78.00 Pure hypercholesterolemia, unspecified; Z88.1 Allergy status to other antibiotic agents; Z88.2 Allergy status to sulfonamides; Z91.040 Latex allergy status; Z79.82 Long term (current) use of aspirin; Z79.899 Other long term (current) drug therapy; Z88.8 Allergy status to other drugs, medicaments and biological substances
CPT/HCPCS: 73030; 99283; A9270

== ENCOUNTER 2020-11-21 22:57 | Emergency (ER) | payer MEDICARE, OTHER ==
--- NOTE | 2020-11-21 23:08 | EDM.PDOC ---
ED HPI GENERAL MEDICAL PROBLEM - General Chief Complaint: Head Injury Stated Complaint: [facility] Time Seen by Provider: 11/21/20 22:57 Source of Information: Reports: Patient, EMS History Limitations: Reports: No Limitations - History of Present Illness INITIAL COMMENTS - FREE TEXT/NARRATIVE: A trauma alert was called for this patient for a fall while on an anticoagulant, however, patient states that she is not on an anticoagulant. Mrs. Cho is a very pleasant 89-year-old woman who is now brought to the ED from [facility] after she was found on the floor by a staff member, having sustained a laceration to her posterior right scalp. The patient reported that she had been on the floor for about 3 hours. The patient states that she was preparing to go to bed, and was walking backwards towards her bed, pulling her walker, when she lost her balance and fell backwards around 19:00, striking her back right scalp. She denies that she was knocked unconscious. She tells me that she has bilateral rotator cuff tears, and does not have the ability to lift herself up off the floor. The patient denies any injuries other than the scalp laceration. Here in the ED, the patient's initial BP is found to be elevated 160/64, otherwise, she is hemodynamically stable, afebrile, saturating 88% on room air. She appears to be comfortable, in no acute distress. Prior to elba's fall, the patient denies having a recent fever, chills, sore throat, ear pain, nasal or sinus congestion, cough, dyspnea, chest pain, palpitations, nausea, vomiting, constipation, diarrhea, abdominal pain, urinary symptoms, recent weight gain or weight loss, recent bloody bowel movements or black bowel movements, recent joint aches, headaches, or rashes. The patient's PCP is Franchesca Greer NP. Her Neurologist is Dr. Tim Wheatley. She has received 2 COVID vaccinations. - Related Data Allergies Allergy/AdvReac Type Severity Reaction Status Date / Time ciprofloxacin Allergy Rash Verified 12/09/17 08:31 clindamycin Allergy Rash Verified 12/09/17 08:31 Latex, Natural Rubber Allergy Rash Verified 12/09/17 08:31 nitrofurantoin Allergy Rash Verified 12/09/17 08:31 Sulfa (Sulfonamide Allergy Rash Verified 12/09/17 08:31 Antibiotics) Home Meds: Home Meds Aspirin [Mague Chewable Aspirin] 81 mg PO DAILY 08/21/13 [History] Levothyroxine Sodium [Synthroid] 112 mcg PO DAILY 08/21/13 [History] Simvastatin [Zocor] 20 mg PO BEDTIME 08/21/13 [History] Lisinopril 20 mg PO BID 04/13/14 [History] cloNIDine [Catapres] 2 tab PO BID 05/15/15 [History] Chlorthalidone 50 mg PO DAILY 10/01/17 [History] Metoprolol Tartrate 150 mg PO BID 10/01/17 [History] Primidone [Mysoline] 100 mg PO DAILY 10/01/17 [History] Acetaminophen/Codeine [Tylenol with Codeine No.3 300MG/30MG] 1 tab PO Q4H PRN #15 tab 12/09/17 [Rx] B2/Vits A,C,E/Lut/Zeaxanth/Min [Icaps] 1 tab PO DAILY 12/09/17 [History] amLODIPine Besylate [Amlodipine Besylate] 5 mg PO DAILY 12/09/17 [History] Past Medical History HEENT History: Reports: Glaucoma, Impaired Vision (wears glasses) Cardiovascular History: Reports: High Cholesterol, Hypertension 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: Reports: Renal Calculus Musculoskeletal History: Reports: Fracture Endocrine/Metabolic History: Reports: Hypothyroidism - Past Surgical History HEENT Surgical History: Reports: Cataract Surgery GI Surgical History: Reports: Appendectomy Female Surgical History: Reports: Hysterectomy (complete) Neurological Surgical History: Reports: Discectomy Musculoskeletal Surgical History: Reports: Shoulder Surgery Social & Family History - Tobacco Use Tobacco Use Status *Q: Former Tobacco User - Caffeine Use Caffeine Use: Reports: None - Alcohol Use Alcohol Use History: No - Recreational Drug Use Recreational Drug Use: No - Living Situation & Occupation Living situation: Reports: , Assisted Living ([facility]) Occupation: Retired ED ROS GENERAL - Review of Systems Review Of Systems: Comprehensive ROS is negative, except as noted in HPI. ED EXAM, HEAD INJURY - Physical Exam Exam: See Below Exam Limited By: No Limitations General Appearance: Alert, WD/WN, No Apparent Distress Head: Normocephalic, Scalp Lacerations (Approx 3 cm posterior right. Minimal associated hematoma.) Eyes: Bilateral Eye: EOMI, Normal Inspection, PERRL Ears: Normal External Exam, Normal Canal, Hearing Grossly Normal, Normal TMs Nose: Normal Inspection, Normal Mucousa, No Blood Throat/Mouth: Normal Inspection, Normal Lips, Normal Teeth, Normal Gums, Normal Oropharynx, Normal Voice, No Airway Compromise Neck: Non-Tender, Full Range of Motion, Normal Alignment, Normal Inspection Respiratory: No Respiratory Distress, Lungs Clear, Normal Breath Sounds, No Accessory Muscle Use Cardiovascular: Normal Peripheral Pulses, Regular Rate, Rhythm, No Edema, No Gallop, No JVD, No Murmur, No Rub GI/Abdominal Exam: Normal Bowel Sounds, Soft, Non-Tender, No Organomegaly, No Distention, No Abnormal Bruit, No Mass Back Exam: Full Range of Motion, Normal Inspection, NT Extremities: Normal Inspection, Normal Range of Motion, No Pedal Edema, Normal Capillary Refill 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 II-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 nml As Tested, No Motor/Sensory Deficits, Alert, Oriented x 3 Skin: Normal Color, Warm/Dry ED LACERATION/WOUND & LANCE PROC - Laceration/Wound Repair Right Head Lac/wound length in cm: 3.0 Appearance: Subcutaneous, Irregular, Clean Distal NVT: Neuro & Vascular Intact, No Tendon Injury Skin Prep: Saline Exploration/Debridement/Repair: Wound Explored, In a Bloodless Field, Explored to Base, No Foreign Material Found Closed with: [place] # of Sutures: 6 Drain Placement: No Sterile Dressing Applied: None Tetanus Status Addressed: Yes Complications: No Course - Vital Signs Last Recorded V/S: Last Vital Signs Temp 36.0 C L 11/21/20 23:03 Pulse 74 11/22/20 00:30 Resp 16 11/22/20 00:30 BP 120/54 L 11/22/20 00:30 Pulse Ox 92 L 11/22/20 00:30 - Re-Assessments/Exams Free Text/Narrative Re-Assessment/Exam: 11/21/20 23:22 The patient's older medication list includes aspirin, however, the patient states that she is not on aspirin or any other anticoagulant. She has an approximately 3 cm irregular laceration to her posterior right scalp that is not currently bleeding. I have ordered a CT of the head without contrast, and once she returns from CT, I will staple the laceration. 11/22/20 00:07 CT of the head without contrast is read by vRelissa as: 1. No sign of acute intracranial injury or skull fracture. 2. Senescent changes of the brain are present. 11/22/20 00:12 I placed 6 rosalie across the scalp laceration. The patient tolerated the procedure well. I explained to the patient that she should keep her hair clean with ordinary shampoo and water when she bathes, but that she should not put any products in her hair, such as gels or hairspray. Antibiotics are not necessary. I will discharge the patient back to [facility]. The rosalie should be ready for removal in 7 to 10 days. Departure - Departure Time of Disposition: 00:14 Disposition: Home, Self-Care 01 Condition: Good Clinical Impression: Fall at senior living, Scalp laceration - Discharge Information *PRESCRIPTION DRUG MONITORING PROGRAM REVIEWED*: Not Applicable *COPY OF PRESCRIPTION DRUG MONITORING REPORT IN PATIENT TEDDY: Not Applicable Instructions: Laceration Care, Adult, [id number] Referrals: Franchesca Greer NP [Primary Care Provider] - Nael Wheatley MD [Ordering Only Provider] - Forms: ED Department Discharge Additional Instructions: Mrs. Cho was seen in the emergency room after falling at the senior living, cutting her scalp. Work-up in the ER included a CT of her head, which returned unremarkable, with no intracranial injury found. Her scalp laceration was closed with 6 rosalie. She should keep the wound clean with ordinary shampoo and water when she bathes. She should not put any products in her hair, such as gels or hair sprays. She may take [id number] Tylenol or ibuprofen as needed for discomfort. The rosalie should be ready for removal in 7 to 10 days. They can be removed at the walk-in clinic, by a nurse at her doctor's office, or in the ER. If any other problems, please do not hesitate to return Mrs. Cho to the ER.
[2020-11-22 01:45] VITALS: BP 120/54; PULSE 74
--- NOTE | 2020-11-22 08:12 | CT ---
Head CT Technique: Multiple axial sections through the brain were obtained. Intravenous contrast was not utilized. Reconstructed coronal and sagittal images were obtained. Comparison: Prior head CT study of 09/21/18. Findings: Ventricles along with basal cisterns and sulci over the convexities are prominent. Scattered areas of diminished density are noted within the periventricular and subcortical white matter compatible with small vessel ischemic demyelination change which is fairly stable. No other abnormal parenchymal densities are seen. No evidence of intracranial hemorrhage is seen. No midline shift or mass-effect is seen. Bone window settings were reviewed. Visualized paranasal sinuses show minimal mucosal thickening within the posterior right ethmoid sinus which is felt to be nonacute. No acute mastoid sinus findings are seen. No acute calvarial abnormality is appreciated. Atherosclerotic calcification is seen within the carotid siphon. Impression: 1. Mild senescent change which is stable from prior head CT study. 2. Minimal sinus finding which is felt to be chronic. 3. No acute intracranial abnormality is identified. Diagnostic code #2 I agree with preliminary report from [facility], finalized on 11/22/20, 12:55 AM CDT, code 1
== END 2020-11-22 00:45 | disposition home or self-care (01) ==
LOC: JD.ED 22:57
DX: S01.01XA Laceration without foreign body of scalp, initial encounter (principal); E78.00 Pure hypercholesterolemia, unspecified; I10 Essential (primary) hypertension; E03.9 Hypothyroidism, unspecified; Z87.891 Personal history of nicotine dependence; Z88.1 Allergy status to other antibiotic agents; Z91.040 Latex allergy status; Z88.2 Allergy status to sulfonamides; Z79.82 Long term (current) use of aspirin; Z79.899 Other long term (current) drug therapy; W18.30XA Fall on same level, unspecified, initial encounter; Y93.01 Activity, walking, marching and hiking; Y92.129 Unspecified place in nursing home as the place of occurrence of the external cause
CPT/HCPCS: 12002; 12013; 70450; 70450-26; 99283; 99284-25